=== PATIENT | female | born 1970 | race Hispanic/Latino ===

== ENCOUNTER 2023-07-07 11:03 | Observation (INO) | payer BC ==
[~2023-07-07] VITALS: Ht 167.6 cm; Wt 92.5 kg
[2023-07-07 12:09] LABS: MEAN CORPUSCULAR HEMOGLOBIN 26.7 pg (27.0-33.0); MEAN CORPUSCULAR HGB CONC 31.3 g/dL (32.0-36.0); MEAN CORPUSCULAR VOLUME 85.6 fL (79-99); PLATELET COUNT (AUTO) 329 K/uL (130-400); RED BLOOD CELL COUNT(AUTO) 1.87 MIL/uL (4.00-5.50); RED CELL DISTRIBUTION WIDTH 17.5 % (11.0-15.5); WHITE BLOOD COUNT (AUTO) 5.9 K/uL (4.8-10.8)
[2023-07-07 12:20] LABS: CREATININE 0.9 mg/dL (0.5-1.5); POTASSIUM 3.9 mmol/L (3.5-5.1)
[2023-07-07 12:24] LABS: ALBUMIN 2.9 g/dL (3.5-5.0); BILIRUBIN,TOTAL 0.2 mg/dL (0.2-1.0); TOTAL PROTEIN, SERUM 6.5 g/dL (6.0-8.3)
[2023-07-07 12:58] LABS: INR < 0.93 (0.85-1.15); PROTHROMBIN TIME 9.9 SEC (9.6-11.6)
[2023-07-07] MEDS ORDERED: MEDROXYPROGESTERONE ACET 5 MG TAB PO SCH (14:30)
[2023-07-07 15:16] LABS: APPEARANCE,URINE CLEAR (CLEAR); BILIRUBIN,URINE NEGATIVE (NEGATIVE); COLOR,URINE COLORLESS (YELLOW); GLUCOSE, URINE (UA) NEGATIVE (NEGATIVE); KETONES,URINE NEGATIVE (NEGATIVE); LEUKOCYTE ESTERASE ,URINE NEGATIVE Leu/uL (NEGATIVE); NITRATE,URINE NEGATIVE (NEGATIVE); OCCULT BLOOD,URINE MODERATE (NEGATIVE); PH,URINE 6.5 (5.0-8.0); PROTEIN,URINE NEGATIVE (NEGATIVE); UROBILINOGEN,URINE 0.2 mg/dL (0.2-1.0)
[2023-07-07 15:26] LABS: ADD UA MICROSCOPIC YES
[2023-07-07 15:27] LABS: RBC,URINE 0-1 /HPF (0-1); SQUAMOUS EPITHELIAL CELL,UR RARE /HPF (0-2); WBC,URINE 0-1 /HPF (0-1)
[2023-07-07] MEDS ORDERED: ASCO100031 PO (16:26)
[2023-07-07] MEDS ORDERED: ATOR10TA69 PO (16:26)
[2023-07-07] MEDS ORDERED: CHOL500051 PO (16:26)
[2023-07-07] MEDS ORDERED: MECO10005 PO (16:26)
[2023-07-07] MEDS ORDERED: LOSA1TAB37 PO (16:26)
[2023-07-07] MEDS ORDERED: METF-444 PO (16:26)
[2023-07-07] MEDS ORDERED: OMEG-148 PO (16:26)
[2023-07-07] MEDS ORDERED: ASPI-1197 PO (16:26)
[2023-07-07 19:33] VITALS: O2SAT 100
[2023-07-07 22:44] VITALS: BP 146/71; PULSE 74; RESP 18
[2023-07-07] MEDS ORDERED: ONDANSETRON 4MG INJ IVP PRN (23:30)
[2023-07-07] MEDS ORDERED: LACTATED RINGERS 1000ML 1,000 ML IV SCH (23:30)
[2023-07-07] MEDS ORDERED: ACETAMINOPHEN 325 MG TAB PO PRN (23:30)
[2023-07-07] MEDS ORDERED: IBUPROFEN 600 MG TABLET PO PRN (23:30)
[2023-07-07] MEDS ORDERED: DIPHENHYDRAMINE HCL 25 MG CAPSULE PO PRN (23:30)
[2023-07-08 00:51] VITALS: BP 134/71; PULSE 76; RESP 18
[2023-07-08 03:39] VITALS: BP 154/80; PULSE 63; RESP 18
[2023-07-08] MEDS ORDERED: DEXTROSE 50%-WATER 50 ML DISP.SYRIN IV PRN (04:00)
[2023-07-08] MEDS ORDERED: GLUCAGON 1MG KIT 1 MG ML IM PRN (04:00)
[2023-07-08] MEDS: INSULIN HUMULIN R 100 UNIT/ML 3ML SQ SCH ×3 (06:23→16:17)
[2023-07-08 07:58] VITALS: BP 141/73; PULSE 63; RESP 20
[2023-07-08] MEDS ORDERED: CYANOCOBALAMIN (VITAMIN B-12) 1,000 MCG TABLET PO SCH (09:00)
[2023-07-08] MEDS ORDERED: LOSARTAN/HYDROCHLOROTHIAZIDE 50-12.5MG TABLET PO SCH (09:00)
[2023-07-08] MEDS ORDERED: FAMOTIDINE 20MG TAB PO SCH (09:00)
[2023-07-08] MEDS ORDERED: MEDROXYPROGESTERONE ACET 5 MG TAB PO SCH (09:00)
[2023-07-08] MEDS ORDERED: FISH OIL 1000 MG/CAP PO SCH (09:00)
[2023-07-08] MEDS ORDERED: ASCORBIC ACID 500 MG TAB PO SCH (09:00)
[2023-07-08] MEDS ORDERED: NON-FORMULARY MEDICATION 1 EACH (Mecobalamin (B12 Active) 1,000 MCG) PO SCH (09:00)
[2023-07-08 09:20] LABS: HEMATOCRIT 26.8 % (36-48); MEAN CORPUSCULAR HEMOGLOBIN 28.2 pg (27.0-33.0); MEAN CORPUSCULAR HGB CONC 32.1 g/dL (32.0-36.0); MEAN CORPUSCULAR VOLUME 87.9 fL (79-99); RED BLOOD CELL COUNT(AUTO) 3.05 MIL/uL (4.00-5.50); RED CELL DISTRIBUTION WIDTH 15.7 % (11.0-15.5); WHITE BLOOD COUNT (AUTO) 8.1 K/uL (4.8-10.8)
[2023-07-08 09:28] LABS: CREATININE 0.8 mg/dL (0.5-1.5)
[2023-07-08 10:22] LABS: HEMOGLOBIN A1C 6.8 % (4.0-6.0)
[2023-07-08 10:29] LABS: THYROID STIMULATING HORMONE 2.78 uIU/mL (0.36-3.74)
[2023-07-08 11:56] VITALS: BP 131/60; PULSE 59; RESP 16
[2023-07-08 16:05] VITALS: BP 139/58; PULSE 59; RESP 20
[2023-07-08] MEDS ORDERED: MEDR10TA PO (18:58)
[2023-07-08] MEDS ORDERED: VITAMIN D3 125 MCG PO SCH (21:00)
[2023-07-08] MEDS ORDERED: ATORVASTATIN 10 MG TABLET PO SCH (21:00)
== END 2023-07-08 19:25 | disposition home or self-care (01) ==
LOC: EDH 11:03 → INTOOBSV 20:31 → EDHIP 20:31 → WSH 22:22
PROVIDERS: ADMIT Internal Medicine; ATTEND Internal Medicine
DX: D50.0 Iron deficiency anemia secondary to blood loss (chronic) (principal); N93.9 Abnormal uterine and vaginal bleeding, unspecified; E11.9 Type 2 diabetes mellitus without complications; E78.5 Hyperlipidemia, unspecified; E43 Unspecified severe protein-calorie malnutrition; E78.00 Pure hypercholesterolemia, unspecified; Z79.899 Other long term (current) drug therapy
CPT/HCPCS: 36430; 99285; 80053; 85027 ×2; 85007; 85610; 86850; 86900; 86901; 86923 ×3; 83605; 81001; 36415 ×2; 96360; 96361; 83036; 84443; 80061; 80048; 82948 ×3; P9016 ×3; G0378 ×2; J7120 ×2